=== PATIENT | male | born 1955 | race American Indian/Alaskan Native ===

== ENCOUNTER 2017-07-27 09:49 | Day surgery (SDC) | payer MEDICAID ==
[2017-07-27] MEDS ORDERED: NACL 0.9% 1000 ML 1,000 ML IV SCH (12:00)
--- NOTE | 2017-07-27 12:03 | Anesthesia Consultation ---
Anesthesia Consult and Med Hx Date of service: 07/27/17 - Airway Anesthetic Teeth Evaluation: Poor, Dentures (upper) ROM Head & Neck: Adequate Mental/Hyoid Distance: Adequate Mallampati Class: Class II Intubation Access Assessment: Probably Good - Pulmonary Exam CTA: Yes - Cardiac Exam Cardiac Exam: RRR - Pre-Operative Health Status ASA Pre-Surgery Classification: ASA3 Proposed Anesthetic Plan: MAC - Pulmonary Hx Smoking: Yes Hx Sleep Apnea: No - Cardiovascular System Hx Hypertension: No - Central Nervous System Hx Psychiatric Problems: Yes (anxiety depression) - Gastrointestinal Hx Gastroesophageal Reflux Disease: No - Endocrine Hx Renal Disease: No (BPH) Hx Cirrhosis: No (daily ETOH) Hx Insulin Dependent Diabetes: No - Other Systems Hx Alcohol Use: Yes (6 beers/day) Hx Substance Use: No Hx Cancer: No Hx Obesity: No
--- NOTE | 2017-07-27 12:04 | Anesthesia Day of Surgery ---
Anesthesia Day of Surgery - Day of Surgery Patient Examined: Yes Patient H&P Reviewed: Yes Patient is NPO: Yes
[2017-07-27] MEDS ORDERED: DIPRIVAN 10 MG/ML IV ONE ×2 (13:27→13:28)
--- NOTE | 2017-07-27 14:34 | Post Anesthesia Evaluation ---
- Post Anesthesia Evaluation Patient Participated: Yes Airway Patent: Yes Stable Respiratory Function: Yes Temp > 96.8F: Yes Pain Manageable: Yes Adequeate Hydration: Yes Anesthesia Complications: No
--- NOTE | 2017-07-27 14:50 | Discharge Summary ---
Short Stay Discharge Plan Activity: advance as tolerated Weight Bearing Status: Weight Bear as Tolerated Diet: regular Additional Instructions: Post Sedation D/C Instructions When you return home you may resume your regular diet unless otherwise directed. -Go directly home from the hospital and rest quietly. You may resume normal activities tomorrow. -Do NOT drive, return to work, operate any machinery or make any important personal or business decisions today. -Do NOT drink any alcohol or take nerve or sleeping drugs. They add to the effects of the medicine still present in your body. Follow up with Dr. Mejia in 2 weeks to obtain pathology results and treatment plan.
--- NOTE | 2017-07-27 14:50 | Operative Report ---
Operative Report Operative Report: Date of procedure: 07/27/2017 Procedure: Colonoscopy with Hot Biopsy Polypectomy. Attending physician: Simone Mejia MD Corporate Account Executive: Simone Mejia MD Indication: Patient is a 62-year-old male who presents for colonoscopy for colorectal cancer screening. Patient has a past history of colon polyps. A colonoscopy serves to evaluate patient so that treatment may be directed based on the findings. Consent: Informed consent was obtained after advising the patient and family regarding nature of this procedure, its indications, potential benefits as well as possible complications including but not limited to bleeding perforation and adverse reaction to medication, infection as well as other cardiopulmonary complications. An informed written and verbal consent was then obtained after due opportunity was provided for questions and answers. Monitoring: Patient was monitored continuously with pulse oximetry and electrocardiographic recordings as well as blood pressure recordings. Vital signs remained stable throughout this procedure with no untoward events. Preoperative assessment: Patient was assessed immediately prior to this procedure for capacity to tolerate monitored anesthesia care and moderate sedation as well as general anesthesia. Patient's ASA classification is 2, Mallampati class is 2, Hyomental distance is 3. Instrument: MySmartPricen video colonoscope Medications: Propofol given intravenously in divided doses. For details please refer to anesthesia records. Description of procedure: Patient was placed in the left lateral decubitus position after achieving sedation, a digital rectal examination was performed following which the colonoscope was introduced into the anal verge and advanced to the cecum which was identified by the ileocecal valve, the appendiceal orifice, as well as by the cecal strap and direct transillumination. The colonoscope was subsequently withdrawn with careful inspection of all mucosal surfaces. Patient tolerated this procedure well and was subsequently taken to the recovery room. The following findings were noted. Findings: The preparation was fair. Patient had a sigmoid colon polyp measuring approximately 6 mm. It was flat. It was removed by hot biopsy polypectomy and retrieved. The rest of the colon was normal. On the retroflex view at the anal verge, patient had internal hemorrhoids. Impression: Sigmoid colon polyp status post hot biopsy polypectomy. Internal hemorrhoids. Plan: Follow pathology report. High-fiber diet. Repeat colonoscopy in 5 years.
[2017-07-27 15:06] VITALS: BP 133/77
== END 2017-07-27 09:50 | disposition home or self-care (01) ==
LOC: GIO 09:49 → EDBD 15:00
PROVIDERS: ATTEND Internal Medicine Gastroenterology
DX: Z09 Encounter for follow-up examination after completed treatment for conditions other than malignant neoplasm (principal); D12.5 Benign neoplasm of sigmoid colon; K64.8 Other hemorrhoids; F41.9 Anxiety disorder, unspecified; F32.9 Major depressive disorder, single episode, unspecified; F17.210 Nicotine dependence, cigarettes, uncomplicated; Z86.73 Personal history of transient ischemic attack (TIA), and cerebral infarction without residual deficits; Z87.19 Personal history of other diseases of the digestive system; Z79.899 Other long term (current) drug therapy; Z72.89 Other problems related to lifestyle; Z98.890 Other specified postprocedural states
CPT/HCPCS: 45384; 88305; J2704; J7030

== ENCOUNTER 2018-08-20 15:22 | Day surgery (SDC) | payer MEDICARE, MEDICAID ==
--- NOTE | 2018-08-20 15:54 | Anesthesia Consultation ---
Anesthesia Consult and Med Hx Date of service: 08/20/18 - Airway Anesthetic Teeth Evaluation: Poor (bottom), Edentulous (upper) ROM Head & Neck: Adequate Mental/Hyoid Distance: Adequate Mallampati Class: Class II Intubation Access Assessment: Probably Good - Pulmonary Exam CTA: Yes - Cardiac Exam Cardiac Exam: RRR - Pre-Operative Health Status ASA Pre-Surgery Classification: ASA2 Proposed Anesthetic Plan: MAC - Pulmonary Hx Smoking: Yes - Central Nervous System CVA: Yes (TIA, no deficits ) Hx Back Pain: Yes (neuropathy, numb/ting hands and feet) Hx Psychiatric Problems: Yes - Other Systems Hx Alcohol Use: Yes (daily ) Hx Substance Use: Yes (marijuana)
--- NOTE | 2018-08-20 15:56 | Anesthesia Day of Surgery ---
Anesthesia Day of Surgery - Day of Surgery Patient Examined: Yes Patient H&P Reviewed: Yes Patient is NPO: Yes
[2018-08-20] MEDS ORDERED: NACL 0.9% 1000 ML 1,000 ML IV SCH (16:00)
[2018-08-20] MEDS ORDERED: DIPRIVAN 10 MG/ML IV ONE ×2 (17:01→17:48)
[2018-08-20] MEDS ORDERED: WATER FOR IRRIG STERILE IR ONE ×2 (17:07→20:08)
[2018-08-20] MEDS ORDERED: INFANTS' GAS RELIEF PO ONE (17:08)
[2018-08-20] MEDS ORDERED: WATER FOR IRRIG STERILE ONE (17:08)
[2018-08-20] MEDS ORDERED: XYLOCAINE TOPICAL 2% 5ML ONE (17:10)
--- NOTE | 2018-08-20 17:55 | Operative Report ---
Operative Report Operative Report: Date of procedure: 08/20/2018 Procedure: Colonoscopy with Cold snare Polypectomy, Snare electrocautery, Hot biopsy polypectomy and Polyp ablation. Attending physician: Simone Mejia MD Head Strength And Conditioning Coach: Simone Mejia MD Indication: Patient is a 63 year-old male who presents for colonoscopy. He has a history of colon polyps. This colonoscopy is done for surveillance regarding patient's history of colon polyps so that treatment may be directed based on the findings. On patient's last examination, the preparation was suboptimal. Consent: Informed consent was obtained after advising the patient and family regarding nature of this procedure, its indications, potential benefits as well as possible complications including but not limited to bleeding perforation and adverse reaction to medication, infection as well as other cardiopulmonary complications. An informed written and verbal consent was then obtained after due opportunity was provided for questions and answers. Monitoring: Patient was monitored continuously with pulse oximetry and electrocardiographic recordings as well as blood pressure recordings. Vital signs remained stable throughout this procedure with no untoward events. Preoperative assessment: Patient was assessed immediately prior to this procedure for capacity to tolerate monitored anesthesia care and moderate sedation as well as general anesthesia. Patient's ASA classification is 1, Mallampati class is 2, Hyomental distance is 3. Instrument: Fujinon videocolonoscope. Fujinon video endoscope. Medications: Propofol given intravenously in divided doses. For details please refer to anesthesia records. Description of procedure: Patient was placed in the left lateral decubitus position after achieving sedation, a digital rectal examination was performed following which the colonoscope was introduced into the anal verge and advanced to the cecum which was identified by the cecal valve, the appendiceal orifice, as well as by the cecal strap and direct transillumination. The colonoscope was subsequently withdrawn with careful inspection of all mucosal surfaces. Patient tolerated this procedure well and was subsequently taken to the recovery room. The following findings were noted. Findings: The preparation was suboptimal. There was densely adherent stool in the cecum and ascending colon transverse colon and descending and sigmoid colon. There was an 8 mm semi-pedunculated polyp in the rectum which was removed by cold snare. Adjoining this, there was a 5 mm flat polyp which was removed by hot biopsy polypectomy and retrieved. Transverse colon, patient had a sessile 8 mm to 10 mm polyp which was removed by snare polypectomy . There was a sigmoid colon polyp wh was ablated.. There was densely adherent stool seen in every section of the colon. This made the examination difficult and sub optimal. On the retroflexed view of the anal verge, patient had large prolapsing grade 4 internal hemorrhoids. Impression: Polyp status post cold snare polypectomy Transverse colon polyp status post snare electrocautery. Rectal polyp status post hot biopsy polypectomy. Rectal polyp status post ablation. Sigmoid colon polyp status post ablation. Substantial retained stool poor colonoscopic preparation Large prolapsing grade 4 internal hemorrhoids. Plan: Follow pathology report. High-fiber diet. Repeat colonoscopy in 6-12 months. Patient will need hemorrhoidectomy
--- NOTE | 2018-08-20 17:57 | Discharge Summary ---
Short Stay Discharge Plan Activity: no restrictions, advance as tolerated Weight Bearing Status: Weight Bear as Tolerated Diet: regular Additional Instructions: Post Sedation D/C Instructions When you return home you may resume your regular diet unless otherwise directed. -Go directly home from the hospital and rest quietly. You may resume normal activities tomorrow. -Do NOT drive, return to work, operate any machinery or make any important personal or business decisions today. -Do NOT drink any alcohol or take nerve or sleeping drugs. They add to the effects of the medicine still present in your body. Follow up with: PRIMARY CARE [Primary Care Provider] - 7 Days
[2018-08-20 19:07] VITALS: BP 133/77
== END 2018-08-20 15:23 | disposition home or self-care (01) ==
LOC: GIO 15:22
PROVIDERS: ATTEND Internal Medicine Gastroenterology
DX: D12.8 Benign neoplasm of rectum (principal); K63.5 Polyp of colon; K64.8 Other hemorrhoids; K21.9 Gastro-esophageal reflux disease without esophagitis; F32.9 Major depressive disorder, single episode, unspecified; F17.210 Nicotine dependence, cigarettes, uncomplicated; Z79.899 Other long term (current) drug therapy; Z72.89 Other problems related to lifestyle; Z86.010 Personal history of colon polyps; Z86.73 Personal history of transient ischemic attack (TIA), and cerebral infarction without residual deficits; Z98.890 Other specified postprocedural states
CPT/HCPCS: 45384; 45385; 45388; 88305; J2704; J7030